=== PATIENT | male | born 1995 | race Caucasian/White ===

== ENCOUNTER 2020-08-04 09:19 | Emergency (ER) | payer BC ==
[2020-08-04 09:35] VITALS: BP 115/79; PULSE 66
--- NOTE | 2020-08-04 11:19 | EDM.PDOC ---
ED HPI GENERAL MEDICAL PROBLEM - General Chief Complaint: Cardiovascular Problem Stated Complaint: CHEST PAIN,SWEATING,FALL,PALE Time Seen by Provider: 08/04/20 10:56 Source of Information: Reports: Patient History Limitations: Reports: No Limitations - History of Present Illness INITIAL COMMENTS - FREE TEXT/NARRATIVE: Patient is a 24-year-old male brought in by his mother with complaints of what sounds like a syncopal episode. Patient is Down syndrome, therefore he lives with his mother. Mother states that she heard "a ruccus" in his room so she went to check on him. She states he was sitting on the floor and appeared somewhat disoriented. He was pale, diaphoretic, and nauseous. She did not know if he necessarily had chest pain. She states that on the way to the ER, his color returned to normal and that he is feeling well at this time. Patient denies any abdominal pain, chest pain, shortness of breath, or any other symptoms at this point. Other than being Down syndrome, he has no other chronic medical conditions. He is currently on no medications. Chest Pain Score (Numeric/FACES): 3 - Related Data Allergies Allergy/AdvReac Type Severity Reaction Status Date / Time No Known Allergies Allergy Verified 08/04/20 10:20 Home Meds: Home Meds . [No Known Home Meds] 08/04/20 [History] Past Medical History Other HEENT History: wears eyeglasses Other Neuro History: Down's syndrome--pt alert, oriented to self. Psychiatric History: Reports: Developmental Delay, Other (See Below) Other Psychiatric History: downs syndrome - Infectious Disease History Infectious Disease History: Reports: Chicken Pox Social & Family History - Tobacco Use Smoking Status *Q: Never Smoker - Caffeine Use Caffeine Use: Reports: Coffee - Recreational Drug Use Recreational Drug Use: No ED ROS GENERAL - Review of Systems Review Of Systems: See Below Constitutional: Reports: No Symptoms. Denies: Fever, Chills, Weakness HEENT: Reports: No Symptoms Respiratory: Reports: No Symptoms. Denies: Shortness of Breath, Cough Cardiovascular: Reports: Syncope. Denies: Chest Pain, Dyspnea on Exertion Endocrine: Reports: No Symptoms GI/Abdominal: Reports: No Symptoms : Reports: No Symptoms Musculoskeletal: Reports: No Symptoms Skin: Reports: Diaphoresis Neurological: Reports: No Symptoms Psychiatric: Reports: No Symptoms Hematologic/Lymphatic: Reports: No Symptoms Immunologic: Reports: No Symptoms ED EXAM, GENERAL - Physical Exam Exam: See Below General Appearance: Alert, WD/WN, No Apparent Distress Respiratory/Chest: No Respiratory Distress, Lungs Clear, Normal Breath Sounds, No Accessory Muscle Use, Chest Non-Tender Cardiovascular: Normal Peripheral Pulses, Regular Rate, Rhythm, No Edema, No Gallop, No JVD, No Murmur, No Rub GI/Abdominal: Normal Bowel Sounds, Soft, Non-Tender, No Organomegaly, No Disten tion, No Abnormal Bruit, No Mass Neurological: Alert, Oriented, CN II-XII Intact, Normal Cognition, Normal Gait, Normal Reflexes, No Motor/Sensory Deficits Psychiatric: Normal Affect, Normal Mood Skin Exam: Warm, Dry, Intact, Normal Color, No Rash EKG INTERPRETATION EKG Date: 08/05/20 Time: 11:49 Rhythm: NSR Rate (Beats/Min): 59 [place]: Normal P-Wave: Present QRS: Normal ST-T: Normal QT: Normal Comparison: NA - No Prior EKG Course - Vital Signs Last Recorded V/S: Last Vital Signs Temp 97.0 F 08/04/20 09:32 Pulse 66 08/04/20 09:32 Resp 12 08/04/20 09:32 BP 115/79 08/04/20 09:32 Pulse Ox 100 08/04/20 09:32 Orthostatic Blood Pressure [ 101/85 Standing] Orthostatic Blood Pressure [ 104/72 Sitting] Orthostatic Blood Pressure [ 113/81 Supine] - Orders/Labs/Meds Labs: Laboratory Tests 08/04/20 08/04/20 08/04/20 Range/Units 11:26 11:26 11:26 WBC 6.57 (4.23-9.07) K/mm3 RBC 5.71 (4.63-6.08) M/mm3 Hgb 17.0 (13.7-17.5) gm/dl Hct 51.1 H (40.1-51.0) % MCV 89.5 (79.0-92.2) fl MCH 29.8 (25.7-32.2) pg MCHC 33.3 (32.2-35.5) g/dl RDW Std Deviation 46.1 H (35.1-43.9) fL Plt Count 222 (163-337) K/mm3 MPV 8.9 L (9.4-12.3) fl Neut % (Auto) 77.9 H (34.0-67.9) % Lymph % (Auto) 15.4 L (21.8-53.1) % [place] % (Auto) 4.4 L (5.3-12.2) % Eos % (Auto) 1.4 (0.8-7.0) Baso % (Auto) 0.6 (0.1-1.2) % Neut # (Auto) 5.12 (1.78-5.38) K/mm3 Lymph # (Auto) 1.01 L (1.32-3.57) K/mm3 [place] # (Auto) 0.29 L (0.30-0.82) K/mm3 Eos # (Auto) 0.09 (0.04-0.54) K/mm3 Baso # (Auto) 0.04 (0.01-0.08) K/mm3 D-Dimer, Quantitative 0.47 (0.19-0.50) mg/L Sodium 139 (136-145) mEq/L Potassium 4.2 (3.5-5.1) mEq/L Chloride 105 (98-107) mEq/L Carbon Dioxide 26 (21-32) mEq/L Anion Gap 12.2 (5-15) BUN 20 H (7-18) mg/dL Creatinine 1.1 (0.7-1.3) mg/dL Est Cr Clr Drug Dosing 86.71 mL/min Estimated GFR (MDRD) > 60 (>60) mL/min BUN/Creatinine Ratio 18.2 H (14-18) Glucose 101 (74-106) mg/dL Calcium 8.8 (8.5-10.1) mg/dL Total Bilirubin 0.5 (0.2-1.0) mg/dL AST 30 (15-37) U/L ALT 44 (16-63) U/L Alkaline Phosphatase 86 (46-116) U/L Troponin I < 0.017 (0.00-0.056) ng/mL C-Reactive Protein 1.5 H* (<1.0) mg/dL Total Protein 7.7 (6.4-8.2) g/dl Albumin 3.4 (3.4-5.0) g/dl Globulin 4.3 gm/dL Albumin/Globulin Ratio 0.8 L (1-2) - Re-Assessments/Exams Free Text/Narrative Re-Assessment/Exam: Work-up was grossly unremarkable. D-dimer was negative, troponin was negative, electrolytes are normal. Chest x-ray and EKG were both normal. Patient is feeling well and is anxious to go home. We will discharge him home with a 48- hour Holter monitor and instructions to follow-up with his primary care jodi barbosa. Discharge instructions as documented. Departure - Departure Time of Disposition: 12:54 Disposition: Home, Self-Care 01 Condition: Good Clinical Impression: Syncope Qualifiers: Syncope type: unspecified Qualified Code(s): R55 - Syncope and collapse Instructions: Syncope, [id number] Referrals: PCP,None [Primary Care Provider] - Forms: ED Department Discharge Additional Instructions: Jose Luis was seen in the emergency department today for having an episode of falling, being sweaty, and being pale. His work-up included blood work, EKG of his heart, and a chest x-ray. His work-up was found to be overall normal. There is no evidence of cardiac or pulmonary involvement; however, he has been sent home on a 48-hour Holter monitor to monitor his heart rhythm for the next 4 8 hours. Follow the instructions as given by respiratory therapy and him to return this on Saturday. Recommend follow-up with his primary care provider in 1 week for an ER follow-up and to review the results of the Holter monitor. Return to the ER for any new or worsening symptoms of concern. Sepsis Event Note (ED) - Evaluation Sepsis Screening Result: No Definite Risk
--- NOTE | 2020-08-04 12:49 | CR ---
Chest: 2 views of the chest are obtained. Comparison: No prior chest imaging is available. Heart size and mediastinum are normal. Slight density is noted within the right middle lobe. Lungs otherwise are clear. Bony structures are within normal limits for the patient's age. Impression: 1. Slight density within the right middle lobe. This is most likely due to atelectasis if patient has no symptoms of early pneumonia. 2. Chest x-ray is otherwise unremarkable. Diagnostic code #3 Study was dictated in MDT
== END 2020-08-04 13:06 | disposition home or self-care (01) ==
LOC: JD.ED 09:19
DX: R55 Syncope and collapse (principal); Q90.9 Down syndrome, unspecified
CPT/HCPCS: 36415; 71046; 71046-26; 80053; 84484; 85025; 85379; 86140; 93005; 93225; 93226; 99285-25